=== PATIENT | male | born 1975 | race Caucasian/White ===

== ENCOUNTER 2023-04-02 18:00 | Inpatient (IN) | payer OTHER ==
[~2023-04-02] VITALS: Ht 180.3 cm; Wt 140.6 kg
[2023-04-02 19:17] LABS: BASOPHILS % 0.8 % (0.0-2.0); EOSINOPHILS % 1.1 % (0.0-5.0); HEMATOCRIT. 43.2 % (42.0-52.0); HEMOGLOBIN. 13.6 g/dL (14.0-18.0); LYMPHOCYTES % 20.8 % (20.0-50.0); MEAN CORPUSCULAR HEMOGLOBIN 26.2 pg (28.0-32.0); MEAN CORPUSCULAR HGB CONC 31.5 g/dL (31.0-37.0); MEAN CORPUSCULAR VOLUME 83.2 fL (80.0-94.0); NEUTROPHILS % 72.3 % (40.0-76.0); RED BLOOD CELL COUNT 5.19 mill/uL (4.7-6.1); WHITE BLOOD COUNT 12.2 x1000/uL (4.5-11.0)
[2023-04-02 19:17] LABS: CLARITY URINE CLEAR (CLEAR); COLOR URINE DARK YELLOW (YELLOW); GLUCOSE URINE NEGATIVE (NEGATIVE); KETONES URINE TRACE (NEGATIVE); LEUKOCYTE ESTERASE URINE NEGATIVE (NEGATIVE); NITRITE URINE NEGATIVE (NEGATIVE); OCCULT BLOOD URINE NEGATIVE (NEGATIVE); PH URINE 5.5 (4.5-8.0); PROTEIN URINE 3+ (NEGATIVE); SPECIFIC GRAVITY URINE 1.045 (1.005-1.030)
[2023-04-02 19:20] LABS: DIFFERENTIAL COMMENT 1
[2023-04-02 19:31] LABS: ALANINE AMINOTRANSFERASE 39 IU/L (10-49); ASPARTATE AMINOTRANSFERASE 33 IU/L (<34); BILIRUBIN TOTAL 0.8 mg/dL (0.1-1.0); CALCIUM 8.7 mg/dL (8.7-10.4); CARBON DIOXIDE 21 mEq/L (21-32); CHLORIDE 109 mEq/L (98-107); CREATININE 1.1 mg/dL (0.6-1.3); GLUCOSE 150 mg/dL (70-105); POTASSIUM 3.8 mEq/L (3.5-5.1); PROTEIN TOTAL 5.9 g/dL (6.0-8.3); SODIUM 140 mEq/L (136-145); TROPONIN I HIGH SENSITIVITY 24 ng/L (3.0-53); UREA NITROGEN BLOOD 27 mg/dL (9-23)
[2023-04-02 19:44] LABS: INR 1.1; PROTHROMBIN TIME 11.6 sec (9.6-11.0)
[2023-04-02 19:56] LABS: BACTERIA URINE 1+; HYALINE CASTS URINE 0-5 /lpf; MUCUS URINE 1+ /lpf (NONE/TRACE); RBC URINE 0-2 /hpf (0-2); SQUAMOUS EPITHELIAL CELL URINE FEW /lpf (RARE/1+); WBC URINE 0-2 /hpf (0-2)
[2023-04-02] MEDS ORDERED: DILTIAZEM HCL 5MG/ML 5ML VIAL IV ONE ×3 (20:00→21:00)
[2023-04-02] MEDS ORDERED: DILTIAZEM HCL 5MG/ML 5ML VIAL IV NR (20:17)
[2023-04-02 20:54] LABS: MEAN PLATELET VOLUME 8.4 fl (7.4-10.4); PLATELET 407 x1000/uL (130-400)
[2023-04-02] MEDS ORDERED: DILTIAZEM HCL 125 MG in DEXT 5% WATER 100 ML IV ONE (21:00)
[2023-04-02] MEDS ORDERED: DILTIAZEM HCL 125 MG in DEXT 5% WATER 100 ML IV PRN (21:00)
[2023-04-02 23:44] LABS: TROPONIN I HIGH SENSITIVITY 24 ng/L (3.0-53)
[2023-04-03] VITALS (50 sets, daily range): BP systolic 103–137; BP diastolic 62–102; PULSE 109–138; RESP 18–38; TEMP 98.3–99.3
[2023-04-03] MEDS ORDERED: AMIODARONE HCL 900 MG in DEXT 5% WATER 500 ML IV ONE ×2
[2023-04-03] MEDS ORDERED: DEXTROSE 50% WATER 50ML SYRINGE IV PRN (01:00)
[2023-04-03] MEDS ORDERED: ACETAMINOPHEN 325MG TABLET PO PRN ×2 (01:00)
[2023-04-03] MEDS ORDERED: DOCUSATE SODIUM 100MG CAPSULE PO PRN (01:00)
[2023-04-03] MEDS ORDERED: MAGNESIUM/ALUMINUM HYDROXIDE/SIMETHICONE 30ML UDC PO PRN (01:00)
[2023-04-03] MEDS ORDERED: CLONIDINE 0.1MG TABLET PO PRN (01:00)
[2023-04-03] MEDS ORDERED: AMIODARONE HCL 900 MG in DEXT 5% WATER 500 ML IV NR ×3 (01:00→01:45)
[2023-04-03] MEDS ORDERED: IPRATROPIUM/ALBUTEROL 0.5-3(2.5)MG/3ML NEB HHN PRN (01:00)
[2023-04-03 04:25] LABS: CLARITY URINE CLEAR (CLEAR); COLOR URINE DARK YELLOW (YELLOW); GLUCOSE URINE NEGATIVE (NEGATIVE); KETONES URINE NEGATIVE (NEGATIVE); LEUKOCYTE ESTERASE URINE NEGATIVE (NEGATIVE); NITRITE URINE NEGATIVE (NEGATIVE); OCCULT BLOOD URINE NEGATIVE (NEGATIVE); PH URINE 5.5 (4.5-8.0); PROTEIN URINE NEGATIVE (NEGATIVE); SPECIFIC GRAVITY URINE 1.037 (1.005-1.030)
[2023-04-03 04:33] LABS: *AMPHETAMINES SCREEN URINE NEGATIVE (NEGATIVE); *BARBITURATES SCREEN URINE NEGATIVE (NEGATIVE); *BENZODIAZEPINES SCREEN URINE NEGATIVE (NEGATIVE); *COCAINE SCREEN URINE NEGATIVE (NEGATIVE); CANNABINOID URINE SCREEN NEGATIVE (NEGATIVE); ECSTASY MDMA SCREEN URINE NEGATIVE (NEGATIVE); METHADONE URINE SCREEN Neg (NEGATIVE); OPIATES URINE SCREEN NEGATIVE (NEGATIVE); PHENCYCLIDINE URINE SCREEN NEGATIVE (NEGATIVE)
[2023-04-03] MEDS ORDERED: INFLUENZA VACCINE 05/PF 0.5 ML SYRINGE IM ONE (07:15)
[2023-04-03] MEDS: GUAIFENESIN 200MG/10ML SUGAR FREE UDC PO PRN ×4 (07:37→21:55)
[2023-04-03] MEDS: BLOOD SUGAR DIAGNOSTIC STRIP TEST SCH ×4 (07:38→21:00)
[2023-04-03] MEDS: PANTOPRAZOLE SODIUM 40 MG/VIAL IV SCH (08:56)
[2023-04-03] MEDS: INSULIN LISPRO 100 UNITS/ML SUBCUT SCH ×4 (08:58→21:31)
[2023-04-03] MEDS ORDERED: ENOXAPARIN 40MG/0.4ML SYR SUBCUT SCH (09:00)
[2023-04-03] MEDS ORDERED: ENOXAPARIN 150MG/ML SYR SUBCUT SCH (12:52)
[2023-04-03] MEDS ORDERED: FUROSEMIDE 20MG/2ML VIAL IVP SCH (13:00)
[2023-04-03] MEDS ORDERED: ENOXAPARIN 100MG/ML SYR SUBCUT NR (13:45)
[2023-04-03] MEDS ORDERED: ENOXAPARIN 150MG/ML SYR SUBCUT NR (13:45)
[2023-04-03] MEDS ORDERED: DILTIAZEM HCL 125 MG in DEXT 5% WATER 100 ML IV PRN (15:00)
[2023-04-03] MEDS: AMIODARONE HCL 200 MG TABLET PO SCH ×2 (15:32→22:34)
[2023-04-03] MEDS: FUROSEMIDE 40MG/4ML VIAL IVP SCH (16:32)
[2023-04-03] MEDS ORDERED: AMIODARONE HCL 900 MG in DEXT 5% WATER 482 ML IV PRN (19:30)
[2023-04-03] MEDS: ONDANSETRON HCL 4MG/2ML INJ IV PRN (21:55)
[2023-04-03] MEDS: ENOXAPARIN 150MG/ML SYR SUBCUT SCH (22:35)
[2023-04-04] VITALS (53 sets, daily range): BP systolic 118–145; BP diastolic 89–118; PULSE 99–124; RESP 15–44; TEMP 98–99; O2SAT 94
[2023-04-04] MEDS: ONDANSETRON HCL 4MG/2ML INJ IV PRN (03:17)
[2023-04-04 05:43] LABS: EOSINOPHILS % 0.1 % (0.0-5.0); HEMATOCRIT. 44.1 % (42.0-52.0); HEMOGLOBIN. 14.1 g/dL (14.0-18.0); LYMPHOCYTES % 18.9 % (20.0-50.0); MEAN CORPUSCULAR HEMOGLOBIN 26.5 pg (28.0-32.0); MEAN CORPUSCULAR HGB CONC 31.9 g/dL (31.0-37.0); MEAN PLATELET VOLUME 8.7 fl (7.4-10.4); MONOCYTES % 8.3 % (2.0-8.0); NEUTROPHILS % 71.7 % (40.0-76.0); PLATELET 411 x1000/uL (130-400); RED BLOOD CELL COUNT 5.32 mill/uL (4.7-6.1); RED CELL DISTRIBUTION WIDTH 15.9 % (11.6-14.6); WHITE BLOOD COUNT 12.1 x1000/uL (4.5-11.0)
[2023-04-04 06:36] LABS: ALANINE AMINOTRANSFERASE 184 IU/L (10-49); ALBUMIN 3.9 g/dL (3.2-4.8); ASPARTATE AMINOTRANSFERASE 222 IU/L (<34); BILIRUBIN TOTAL 1.9 mg/dL (0.1-1.0); CARBON DIOXIDE 20 mEq/L (21-32); CHLORIDE 107 mEq/L (98-107); CHOLESTEROL 109 mg/dL (<200); CREATININE 1.2 mg/dL (0.6-1.3); GLUCOSE 125 mg/dL (70-105); HDL CHOLESTEROL 26 mg/dL (>55); LDL CHOLESTEROL 78 mg/dL (5-100); POTASSIUM 4.5 mEq/L (3.5-5.1); PROTEIN TOTAL 6.6 g/dL (6.0-8.3); SODIUM 138 mEq/L (136-145); T4 FREE 1.43 ng/dL (0.89-1.76); THYROID STIMULATING HORMONE 4.29 uIU/mL (0.55-4.78); TRIGLYCERIDE 86 mg/dL (0-150); UREA NITROGEN BLOOD 35 mg/dL (9-23)
[2023-04-04] MEDS: PANTOPRAZOLE SODIUM 40 MG/VIAL IV SCH (08:20)
[2023-04-04] MEDS: FUROSEMIDE 40MG/4ML VIAL IVP SCH ×3 (08:20→17:07)
[2023-04-04] MEDS: INSULIN LISPRO 100 UNITS/ML SUBCUT SCH ×4 (08:20→21:00)
[2023-04-04] MEDS: ENOXAPARIN 150MG/ML SYR SUBCUT SCH ×2 (08:21→21:26)
[2023-04-04] MEDS: BLOOD SUGAR DIAGNOSTIC STRIP TEST SCH ×4 (08:21→21:00)
[2023-04-04] MEDS: AMIODARONE HCL 200 MG TABLET PO SCH ×3 (08:21→21:26)
[2023-04-04] MEDS ORDERED: LIDOCAINE 2% 6ML GLYDO MM ONE (10:37)
[2023-04-04] MEDS ORDERED: TETRACAINE/BENZOCAINE/BUTAMBEN 20 GM SPRAY MM ONE (10:38)
[2023-04-04] MEDS ORDERED: FENTANYL CITRATE/PF 50MCG/ML 2ML VIAL IV NR (10:45)
[2023-04-04] MEDS: MIDAZOLAM HCL 2 MG/2 ML VIAL IV NR ×2 (10:50→11:07)
[2023-04-04] MEDS ORDERED: FENTANYL CITRATE/PF 50MCG/ML 2ML VIAL IV ONE (11:00)
[2023-04-04] MEDS ORDERED: MIDAZOLAM HCL 2 MG/2 ML VIAL IV NR (11:30)
[2023-04-04] MEDS: GUAIFENESIN 200MG/10ML SUGAR FREE UDC PO PRN ×2 (11:33→18:23)
[2023-04-05] VITALS (39 sets, daily range): BP systolic 82–154; BP diastolic 58–122; PULSE 86–124; RESP 12–38; TEMP 97.8–98.7
[2023-04-05 06:33] LABS: HEMATOCRIT 41.6 % (42.0-52.0); HEMOGLOBIN 13.2 g/dL (14.0-18.0); MEAN CORPUSCULAR HEMOGLOBIN 26.5 pg (28.0-32.0); MEAN CORPUSCULAR HGB CONC 31.7 g/dL (31.0-37.0); MEAN CORPUSCULAR VOLUME 83.5 fL (80.0-94.0); PLATELET 351 x1000/uL (130-400); RED BLOOD CELL COUNT 4.99 mill/uL (4.7-6.1); RED CELL DISTRIBUTION WIDTH 15.9 % (11.6-14.6); WHITE BLOOD COUNT 14.2 x1000/uL (4.5-11.0)
[2023-04-05 07:53] LABS: ALANINE AMINOTRANSFERASE 1176 IU/L (10-49); ALBUMIN 3.8 g/dL (3.2-4.8); ASPARTATE AMINOTRANSFERASE 1410 IU/L (<34); BILIRUBIN TOTAL 2.5 mg/dL (0.1-1.0); CALCIUM 8.9 mg/dL (8.7-10.4); CARBON DIOXIDE 22 mEq/L (21-32); CHLORIDE 104 mEq/L (98-107); CREATININE 1.1 mg/dL (0.6-1.3); GLUCOSE 99 mg/dL (70-105); PHOSPHORUS 4.6 mg/dL (2.5-4.9); PROTEIN TOTAL 5.7 g/dL (6.0-8.3); SODIUM 137 mEq/L (136-145); UREA NITROGEN BLOOD 30 mg/dL (9-23)
[2023-04-05] MEDS: BLOOD SUGAR DIAGNOSTIC STRIP TEST SCH ×4 (08:07→21:00)
[2023-04-05] MEDS: INSULIN LISPRO 100 UNITS/ML SUBCUT SCH ×4 (08:13→21:00)
[2023-04-05] MEDS: AMIODARONE HCL 200 MG TABLET PO SCH ×2 (09:27→21:06)
[2023-04-05] MEDS: PANTOPRAZOLE SODIUM 40 MG/VIAL IV SCH (09:28)
[2023-04-05] MEDS: FUROSEMIDE 40MG/4ML VIAL IVP SCH ×3 (09:28→17:00)
[2023-04-05] MEDS: ENOXAPARIN 150MG/ML SYR SUBCUT SCH ×2 (09:46→21:07)
[2023-04-05 15:11] LABS: HEPATITIS A AB IGM NEGATIVE (Negative); HEPATITIS B CORE AB IGM NEGATIVE (Negative); HEPATITIS B SURFACE ANTIGEN NEGATIVE (Negative); HEPATITIS C AB NON REACTIVE (Neg) (Negative)
[2023-04-05] MEDS: GUAIFENESIN 200MG/10ML SUGAR FREE UDC PO PRN (20:38)
[2023-04-06] VITALS (31 sets, daily range): BP systolic 79–137; BP diastolic 42–118; PULSE 83–124; RESP 14–29; TEMP 98.1–98.4
[2023-04-06 06:17] LABS: HEMATOCRIT 41.4 % (42.0-52.0); HEMOGLOBIN 13.3 g/dL (14.0-18.0); MEAN CORPUSCULAR HEMOGLOBIN 26.6 pg (28.0-32.0); MEAN CORPUSCULAR HGB CONC 32.1 g/dL (31.0-37.0); MEAN CORPUSCULAR VOLUME 82.9 fL (80.0-94.0); PLATELET 306 x1000/uL (130-400); RED CELL DISTRIBUTION WIDTH 15.7 % (11.6-14.6); WHITE BLOOD COUNT 11.1 x1000/uL (4.5-11.0)
[2023-04-06 06:30] LABS: ALANINE AMINOTRANSFERASE 772 IU/L (10-49); ALBUMIN 3.3 g/dL (3.2-4.8); ASPARTATE AMINOTRANSFERASE 463 IU/L (<34); BILIRUBIN TOTAL 1.7 mg/dL (0.1-1.0); CALCIUM 7.9 mg/dL (8.7-10.4); CARBON DIOXIDE 28 mEq/L (21-32); CHLORIDE 105 mEq/L (98-107); CREATININE 0.9 mg/dL (0.6-1.3); GLUCOSE 84 mg/dL (70-105); POTASSIUM 3.5 mEq/L (3.5-5.1); PROTEIN TOTAL 5.6 g/dL (6.0-8.3); SODIUM 140 mEq/L (136-145); UREA NITROGEN BLOOD 29 mg/dL (9-23)
[2023-04-06] MEDS: BLOOD SUGAR DIAGNOSTIC STRIP TEST SCH ×4 (07:50→21:00)
[2023-04-06] MEDS: INSULIN LISPRO 100 UNITS/ML SUBCUT SCH ×4 (08:20→21:00)
[2023-04-06] MEDS ORDERED: IODIXANOL 320MG/ML 100 ML BOTTLE IV ONE (08:44)
[2023-04-06] MEDS ORDERED: MIDAZOLAM HCL 2 MG/2 ML VIAL ONE (08:45)
[2023-04-06] MEDS ORDERED: LIDOCAINE HCL 1% 20ML VIAL (Pyxis) INJ ONE (08:45)
[2023-04-06] MEDS ORDERED: HEPARIN 1000 UNITS/ML 10ML ONE (08:45)
[2023-04-06] MEDS ORDERED: FENTANYL CITRATE/PF 50MCG/ML 2ML VIAL ONE (08:45)
[2023-04-06] MEDS ORDERED: DIPHENHYDRAMINE 50MG/ML VIAL ONE (08:52)
[2023-04-06] MEDS ORDERED: VERAPAMIL HCL 2.5 MG/1 ML 2ML VIAL IV ONE (09:01)
[2023-04-06] MEDS ORDERED: ACETAMINOPHEN 325MG TABLET PO PRN (10:00)
[2023-04-06] MEDS ORDERED: ATROPINE SULFATE 1MG/10ML SYR IV PRN (10:00)
[2023-04-06] MEDS: PANTOPRAZOLE SODIUM 40 MG/VIAL IV SCH (10:10)
[2023-04-06] MEDS: FUROSEMIDE 40MG/4ML VIAL IVP SCH ×3 (10:10→17:00)
[2023-04-06] MEDS: AMIODARONE HCL 200 MG TABLET PO SCH ×2 (10:10→21:14)
[2023-04-06] MEDS: ENOXAPARIN 150MG/ML SYR SUBCUT SCH ×2 (10:12→21:15)
[2023-04-07] VITALS (12 sets, daily range): BP systolic 101–117; BP diastolic 74–104; PULSE 80–96; RESP 15–24; TEMP 97.9–98.6; O2SAT 98
[2023-04-07 06:53] LABS: BASOPHILS % 1.1 % (0.0-2.0); HEMATOCRIT. 41.1 % (42.0-52.0); HEMOGLOBIN. 13.4 g/dL (14.0-18.0); LYMPHOCYTES % 21.5 % (20.0-50.0); MEAN CORPUSCULAR HEMOGLOBIN 26.9 pg (28.0-32.0); MEAN CORPUSCULAR HGB CONC 32.5 g/dL (31.0-37.0); MEAN CORPUSCULAR VOLUME 82.8 fL (80.0-94.0); MEAN PLATELET VOLUME 8.7 fl (7.4-10.4); MONOCYTES % 7.6 % (2.0-8.0); NEUTROPHILS % 68.8 % (40.0-76.0); PLATELET 327 x1000/uL (130-400); RED BLOOD CELL COUNT 4.97 mill/uL (4.7-6.1); RED CELL DISTRIBUTION WIDTH 16.1 % (11.6-14.6); WHITE BLOOD COUNT 8.3 x1000/uL (4.5-11.0)
[2023-04-07] MEDS: BLOOD SUGAR DIAGNOSTIC STRIP TEST SCH (07:50)
[2023-04-07 07:52] LABS: CALCIUM 8.3 mg/dL (8.7-10.4); CARBON DIOXIDE 28 mEq/L (21-32); CHLORIDE 102 mEq/L (98-107); CREATININE 0.8 mg/dL (0.6-1.3); GLUCOSE 85 mg/dL (70-105); POTASSIUM 3.4 mEq/L (3.5-5.1); SODIUM 140 mEq/L (136-145); UREA NITROGEN BLOOD 19 mg/dL (9-23)
[2023-04-07] MEDS: INSULIN LISPRO 100 UNITS/ML SUBCUT SCH (08:13)
[2023-04-07] MEDS: ENOXAPARIN 150MG/ML SYR SUBCUT SCH (08:49)
[2023-04-07] MEDS: PANTOPRAZOLE SODIUM 40 MG/VIAL IV SCH (08:49)
[2023-04-07] MEDS: FUROSEMIDE 40MG/4ML VIAL IVP SCH ×2 (08:49→13:05)
[2023-04-07] MEDS: AMIODARONE HCL 200 MG TABLET PO SCH (08:49)
[2023-04-07] MEDS ORDERED: POTASSIUM CHLORIDE 20MEQ TABLET SR PO NR (09:30)
[2023-04-07] MEDS ORDERED: METOPROLOL SUCCINATE 50MG ER TABLET PO SCH (11:30)
[2023-04-07] MEDS ORDERED: METO-396 PO (12:28)
[2023-04-07] MEDS ORDERED: APIX5TAB PO (12:28)
[2023-04-07] MEDS ORDERED: FURO40TA5 PO (12:28)
[2023-04-07] MEDS ORDERED: AMI2 PO (12:28)
[2023-04-07] MEDS ORDERED: APIXABAN 5 MG TABLET PO SCH (17:00)
== END 2023-04-07 14:20 | disposition home or self-care (01) | DRG 286 ==
LOC: ER 18:00 → EDBEDREQ 20:53 → EDBEDREQSVC 20:53 → EDBEDREQ 20:54 → MICUSO 23:28 → CVICU 04-03 06:44
PROVIDERS: ADMIT Internal Medicine; ATTEND Internal Medicine
PROC: 4A023N7 Measurement of Cardiac Sampling and Pressure, Left Heart, Percutaneous Approach (ICD-10-PCS; principal; 2023-04-06)
PROC: B211YZZ Fluoroscopy of Multiple Coronary Arteries using Other Contrast (ICD-10-PCS; 2023-04-06)
DX: I47.19 Other supraventricular tachycardia (principal); I50.21 Acute systolic (congestive) heart failure; I42.0 Dilated cardiomyopathy; Z68.41 Body mass index [BMI] 40.0-44.9, adult; I48.3 Typical atrial flutter; I48.91 Unspecified atrial fibrillation; I25.10 Atherosclerotic heart disease of native coronary artery without angina pectoris; E78.5 Hyperlipidemia, unspecified; E66.01 Morbid (severe) obesity due to excess calories; D72.829 Elevated white blood cell count, unspecified; R73.9 Hyperglycemia, unspecified; K76.0 Fatty (change of) liver, not elsewhere classified; I34.0 Nonrheumatic mitral (valve) insufficiency; I27.20 Pulmonary hypertension, unspecified; Z79.899 Other long term (current) drug therapy; Z88.0 Allergy status to penicillin; Z82.49 Family history of ischemic heart disease and other diseases of the circulatory system
CPT/HCPCS: 36415; 71045; 76700; 80048; 80053; 80061; 80305; 81003; 82962; 83036; 83735; 83880; 84100; 84439; 84443; 84484; 85025; 85027; 86705; 86709; 87340; 87426; 93005; 93306; 93312; 93458; 93970; 99285; C1769; C1887; C1893; C9113; J0282; J1200; J1644; J1650; J1815; J1940; J2250; J2405; J3010; J3490; J7060; Q9967